=== PATIENT | female | born 1990 | race Caucasian/White ===

== ENCOUNTER 2023-10-31 08:31 | Emergency (ER) | payer MEDICAID, OTHER ==
[~2023-10-31] VITALS: Ht 160 cm; Wt 81.4 kg
[2023-10-31 08:35] VITALS: BP 137/79; RESP 20; O2SAT 98
[2023-10-31 08:38] VITALS: PULSE 97
[2023-10-31 08:58] LABS: Eosinophils # (auto) 0 10 ^3/uL (0-0.8); Hemoglobin 16.4 g/dL (12.2-16.2); Monocytes # (auto) 0.4 10 ^3/uL (0-1.3)
[2023-10-31 09:00] LABS: Basophils # (auto) 0 10 ^3/uL (0-0.2); Basophils % (auto) 0.3 % (0.0-2.0); Eosinophils % (auto) 0.5 % (0.0-7.0); Hematocrit 46.6 % (36.0-46.0); Lymphocytes % (auto) 28.4 % (10.0-50.0); Mean Corpuscular Hemoglobin 39.7 pg (28.0-32.0); Mean Corpuscular Hgb Conc. 35.3 g/dL (32.0-36.0); Mean Corpuscular Volume 112.6 fL (80.0-100.0); Monocytes % (auto) 5.7 % (0.0-12.0); Neutrophils # (auto) 4.6 10 ^3/uL (1.6-8.6); Neutrophils % (auto) 65.1 % (37.0-80.0); Nucleated Red Blood Cells % 0.2 %; Red Blood Cells 4.14 10^6/uL (4.0-5.20); Red Cell Distribution Width 13.3 % (11.8-14.3)
[2023-10-31 09:15] LABS: Alanine Aminotransferase 49 U/L (7-40); Albumin 4.3 g/dL (3.2-4.8); Alkaline Phosphatase 82 U/L (46-116); Anion Gap 12 (5-15); Aspartate Aminotransferase 79 U/L (13-40); BUN/Creatinine Ratio 8.6 (10.0-20.0); Bilirubin, Total 1.1 mg/dL (0.2-1.0); Blood Urea Nitrogen < 5 mg/dL (9-23); Calcium 9.2 mg/dL (8.5-10.1); Carbon Dioxide 20 mmol/L (20-30); Chloride 105 mmol/L (98-107); Glucose 161 mg/dL (74-106); Potassium 3.6 mmol/L (3.5-5.1); Sodium 137 mmol/L (136-145); Total Protein 6.9 g/dL (5.7-8.2)
[2023-10-31 10:14] LABS: Urine Bacteria NONE SEEN /hpf (None Seen); Urine Blood Negative /uL (Negative); Urine Clarity Clear (Clear); Urine Color Colorless (Yellow); Urine Protein, UAD Negative (Negative); Urine Specific Gravity 1.002 (1.001-1.035); Urine Urobilinogen Normal (Negative); Urine WBC 1 /hpf (0 - 5); Urine pH 6.5 (5.0-8.0)
[2023-10-31] MEDS ORDERED: HYDR-4902 PO (11:05)
[2023-10-31] MEDS ORDERED: HYDROcodone-ACET 10/325MG TAB PO ONE (11:15)
== END 2023-10-31 11:13 | disposition home or self-care (01) ==
LOC: ER 08:31
DX: R07.89 Other chest pain (principal); R73.9 Hyperglycemia, unspecified
CPT/HCPCS: 36415; 71046; 80053; 81001; 84484; 85025; 93005